=== PATIENT | female | born 1945 | race Caucasian/White ===

== ENCOUNTER 2019-03-28 07:42 | Inpatient (IN) | payer MEDICARE, OTHER, SELFPAY ==
[2019-03-17 14:00] VITALS: BMI 43.6
[2019-03-28] VITALS (17 sets, daily range): BP systolic 95–121; BP diastolic 42–66; PULSE 65–76; RESP 10–16; TEMP 35.7–36.5; O2SAT 91–99; BMI 43.6
--- NOTE | 2019-03-28 | PATH_ITS ---
[facility] Accession Number: [id number] . 01 Material submitted: . hip - RIGHT HIP . 01 Clinical history: . LIPOMA . 01 Diagnosis: Right Hip, Excision: Lipoma. MRV 03/30/2019 1229 Local . 01 Electronically signed: . Yola Lombardo MD, Dermatopathologist NPI- [id number] . 01 Gross description: . Specimen is received in a formalin-filled container, labeled right hip lipoma, and consists of a 243.0 gram, 13.5 x 13.4 x 7.0 cm, sterling-yellow, unoriented, fibrofatty soft tissue without any grossly identifiable skin present. The specimen is inked blue and sectioning reveals yellow, fatty, grossly unremarkable cut surfaces without a mass or lesion grossly identified. Bulldozer Operator sections are submitted within A1-4. ([id number]) /MRV 03/29/2019 1609 Local . 01 Pathologist provided ICD-10: D17.9 . 01 CPT . 021836 Performed at: [address] [facility] [address], [place], [place] [id number] MD Stepan Coughlin MD Phone: [phone]
--- NOTE | 2019-03-28 06:00 | DI.RAD.S_ITS ---
PROCEDURE: XR PELVIS 1-2V INDICATIONS: postop right toatl hip TECHNIQUE: Intra-operative view of the pelvis and hip acquired. COMPARISON: [facility], MR, MR HIP RIGHT WITHOUT CONTRAST, 03/04/2019, 9:33. [facility], CR, XR PELVIS WITH BILATERAL LATERAL HIPS, 02/23/2019, 13:47. FINDINGS: Bones: Intraoperative devices prior to placement of arthroplasty prostheses are in expected positions. No fractures or suspicious bony lesions. Soft tissues: Overlying surgical retractors are present, along with other intraoperative changes. There is a soft tissue air seen overlying the right hip region. No unexpected radiopaque foreign bodies are identified. IMPRESSION: Expected postoperative changes related to right hip arthroplasty. Dictated by: Balwinder Sousa M.D. on 03/28/2019 at 12:30 Approved by: Balwinder Sousa M.D. on 03/28/2019 at 12:30
[2019-03-28] MEDS: ACETAMINOPHEN 325 MG TABLET 975 MG PO (08:16)
[2019-03-28] MEDS: CELECOXIB 200 MG CAPSULE PO (08:16)
--- NOTE | 2019-03-28 09:19 | PM.PREOP ---
Pre-operative Note Interval Note History & Physical reviewed/Exam performed by Physician: Yes Changes to H&P: No
[2019-03-28] MEDS: CEFAZOLIN 2 GM/100 ML FROZ.PIGGY IV ×2 (09:46→17:32)
[2019-03-28] MEDS: TRANEXAMIC ACID 1,000 MG VIAL 1000 MG IV (10:10)
--- NOTE | 2019-03-28 10:22 | SUR.OPER ---
Lateral on padded OR bed. Gel axillary roll. Arms secured on padded armboard with pillow supporting top arm. Padded hip positioner braces x4 - anterior and posterior chest and pelvis. Additional gel pad used anterior pelvis. Gel pad under bottom leg from knee to foot and secured with tape over sheet.
[2019-03-28] MEDS: MORPHINE 4 MG/ML INJ INJ (10:27)
[2019-03-28] MEDS: ROPIVACAINE 0.5% PF 5 MG/ML 20ML VIAL 60 ML INJ (10:27)
[2019-03-28] MEDS: KETOROLAC 30 MG/ML VIAL IV (10:27)
[2019-03-28] MEDS: LACTATED RINGERS 1,000 ML 42 ML IV ×2 (10:45→11:20)
--- NOTE | 2019-03-28 11:43 | P.OP_ITS ---
Operative Date/Time/Diagnoses Date of procedure: 03/28/19 Time of procedure: 11:43 Pre-op diagnosis: 1. Right hip degenerative joint disease 2. Right hip lipoma Post-op diagnosis: same Procedure & Clinicians Procedure: 1. Right total hip arthroplasty (CPT code 76687 with compounding assistant) 2. Right hip excision of lipoma, 12 x 8 cm. (CPT code 93309 with compounding assistant) Same procedure as scheduled: Yes Indications: Patient is an 73-year-old female with severe right hip DJD. Status post previous left total hip arthroplasty with excellent results. The patient has pain with activities and at rest, limited ambulation and activity tolerance, difficulties with ADLs, and failure of conservative treatment. We have discussed the nature of condition, treatment options, risks and benefits, and patient elects to proceed with total hip arthroplasty and gives informed consent. In addition the patient has a large subcutaneous mass which is nontender over the right greater trochanteric region and as this is in the region of the total hip arthroplasty incision we have discussed the option of excision of the mass and informed consent is obtained. Surgeon: Ashok Lopez Clearing House Clerk: Flaquito Storey Anesthesia Type: General and Spinal Operative Notes Findings: 8 x 12 cm subcutaneous fatty mass consistent with lipoma. Closure Type: primary Specimen(s): other (Fibrofatty mass excised from subcutaneous tissue, lipoma) Prosthetic devices, grafts, tissues, transplants, or devices: Acetabulum: Longoria and Nephew R3 acetabular component size 50 mm Femoral component: Longoria and Nephew Anthology stem size 6 with standard offset Femoral head: 32 mm + 0 cobalt chrome Estimated Blood Loss (mL): 150 Blood products transfused: none Procedure in detail: After satisfaction induction of anesthetic, and administration of IV antibiotics, the patient was positioned in the lateral decubitus position with all bony prominences well padded and pelvic position secured using a hip first coat sander positioning device. Right hip and lower extremity prepped and draped in the usual sterile fashion, 1st dose of intravenous tranexamic acid was administered, then a longitudinal incision was created centered over the greater trochanter and carried sharply through the skin and subcutaneous tissues down to the fascia mann which was divided longitudinally and retracted with a Charnley retractor. External rotators visualize, cut, tagged, and retracted posteriorly, then the capsule was cut in a T-type fashion with the corners tagged and retracted. Hip was dislocated and femoral neck cut made according to preoperative templating. Acetabular retractors then placed, and the acetabular labrum and osteophytes were excised. The acetabulum was then sequentially reamed to 49 mm with an excellent circumferential ream and fit with the trial. The trial component was removed and a permanent size 50 mm Longoria and Nephew R3 acetabular component was selected, positioned, and impacted with satisfactory position and fixation achieved. Permanent liner was then inserted with the elevated lip directed posteriorly. Soft tissue then removed off the lateral femoral neck in the lateral neck was entered using a box osteotome. T- handled reamers placed down the canal followed by sequential broaching to 6 with the final broach left in place for trial reduction which demonstrated excellent leg length, range of motion, and stability characteristics with a 32 mm +0 trial ball. The trial and broach were removed, and a permanent size 6 Longoria and Nephew Anthology stem was selected and inserted with excellent position and fixation achieved. Another trial reduction yielded the above characteristics so the trial ball was exchanged for a permanent 32 mm +0 cobalt chrome ball. The hip was irrigated and reduced and excellent leg length range of motion and stability characteristics were achieved and maintained. Periarticular tissues were infiltrated with combination of ropivacaine, morphine, and Toradol. The hip was copiously irrigated, and the capsule repaired with #2 Ethibond, and the piriformis was repaired back to the greater trochanter with the same. Fascia mann closed with interrupted #1 Ethibond sutures. The large lipoma thus subcuta neous mass which had been retracted anteriorly during the hip arthroplasty was assessed with moderately discrete margins. The lipomas mass was excised with digital dissection and electrocautery. Specimen sent for microscopic evaluation. The subcutaneous tissues were closed in 2 layers of 0 Vicryl and 2 0 Vicryl. Skin was closed with vahid and sterile dressings applied. Second dose of tranexamic acid was administered intravenously, and the anesthetic was terminated. Complications: none Post-operative Condition: stable Disposition: PACU Plan for aftercare: Patient will be admitted to the acute care [facility], and anticipate discharge on postop day 1 with follow-up in office in 10-14 days. Outpatient physical therapy will be arranged and patient will continue to observe posterior hip precautions. Patient will continue use of postoperative Lovenox for 10 days postop.
[2019-03-28] MEDS: LACTATED RINGERS 1,000 ML 125 ML IV ×2 (12:55→21:49)
--- NOTE | 2019-03-28 13:00 | SUR.PHASEI ---
Pt transferred to room 218 via bed with all belongings. Last vital signs stable with no c/o pain; see flowsheet documentation for details. Report given to ABHIJIT Hutton prior to transfer. ABHIJIT Hutton and ABHIJIT Thompson at bedside upon arrival to room 218; handoff report and assessment completed with ABHIJIT Thompson. Donna to assume care of pt at this time.
--- NOTE | 2019-03-28 13:21 | PC.NURSE ---
Addendum entered by Donna Steen R.N. 03/28/19 15:27: Late entry: (1420)- Resting quietly in bed with eyes closed. Respirations regular and unlabored, SpO2 99% on 1L. No s/sx pain or discomfort. 0 on FLACC scale. Light in reach, bed alarm on. Addendum entered by Donna Steen R.N. 03/28/19 13:58: Vitals stable. Tolerating PO's without N/V, general diet ordered for dinner. C/O 3/10 pain in R hip, medicated with 1 tab Vicodin for the same. Denies other needs at this time. Call light in reach, bed alarm on. Original Note: Post-op: Arrived to room 218 at 1255. Wide awake and alert, oriented X3. NICOLE dressing to R hip C/D/I, battery pack WNL. Denies numbness/tingling to BLE's, denies pain. CMS+, strong pedal pulses, feet warm/pink, cap refill <2 sec. VSS, a bit hypotensive (systolic in the 90's) but asymptomatic at rest. BP was in this range in PACU (per CUSTOMER ORDER CLERK). IVF per orders, site in R hand WNL. SCD's to BLE's, pillow between legs. Denies N/V, given coffee and water. Lungs CTA, on 1L O2. Oriented to room and call light, encouraged to make needs known. Call light within reach, bed alarm on.
[2019-03-28] MEDS: HYDROCODONE/ACET 5/325 TABLET 1 TAB PO (13:40)
--- NOTE | 2019-03-28 16:00 | PT.IIE ---
Current Diagnoses Other specific arthropathies, not elsewhere classified, other specified site (03/28/19) Unilateral primary osteoarthritis, right hip (03/28/19) Surgery Performed Operation Date: 03/28/19 09:45 Actual Procedures p Total Hip Arthroplasty(Right) - Ashok Lopez MD Surgical History (Last Updated 03/17/19 @ 14:18 by Elena Sam RN) History of carpal tunnel surgery of right wrist (Acute) History of total left hip arthroplasty (Acute) Hx of cholecystectomy (Acute) Hx of hernia repair (Acute) Hx of laminectomy (Acute 08/28/15) Hx of oral surgery (Acute) Hx of tubal ligation (Acute) Status post epidural steroid injection (Acute) Medical History (Last Updated 03/17/19 @ 14:22 by Elena Sam RN) Ankle fracture, left (Acute ~2008) Easy bruisability (Acute) Factor V Leiden (Acute) Phlebitis (Acute) Psoriasis (Acute) Rectal bleeding (Acute ~2015) Physical Therapy Inpatient Evaluation/Re-Eval M1 PT/OT-IP Prior Functional Status Start: 03/28/19 17:23 Freq: NEEDED Status: Active Protocol: Document 03/28/19 16:00 DLM (Rec: 03/28/19 17:40 DLM [id number]) Medical Review Prior Functional Status Medical History Reviewed Yes Diet/Fluid Consistency Regular Communication WNL Mobility and Gait Independent, uses cane to manage her hip pain, can ambulate community distances but hip pain was limiting her distances Activities of Daily Living and IADL's Independent Social History Household Members family Living Arrangements House Number of Floors (Floors) Two Floors Number of Stairs To Enter/Railing? 4 with one rail or a ramp Home Equipment Front Wheel Walker,Straight Cane,Bedside Commode,Shower Seat with Backrest,Hospital Bed Employment Status Retired Additional Social History Comment transfer pole She has a sucken living room with 2 steps down and a pole at the steps She lives with family members who are available to help 15/12 and she has more family coming to help her after surgery. M2 PT-IP Current Condition Start: 03/28/19 17:23 Freq: NEEDED Status: Active Protocol: Document 03/28/19 16:00 DLM (Rec: 03/28/19 17:40 DLM [id number]) Physical Therapy Current Condition Current Condition Evaluation Date 03/28/19 Treatment Diagnosis right EVA, impaired gait Onset Date 03/28/19 Precautions Posterior Hip Precautions No Hip Flexion > 90 degrees,No Hip Internal Rotation,No Hip Adduction Weight Bearing Status Weight Bearing Status Weight Bear as Tolerated M3 PT-IP Subjective Start: 03/28/19 17:23 Freq: NEEDED Status: Active Protocol: Document 03/28/19 16:00 DLM (Rec: 03/28/19 17:40 DLM [id number]) Subjective Physical Therapy Visit Type Type Initial Evaluation Visit Start Time 15:30 Visit Stop Time 16:00 Total Visit Minutes 30 Number of ENVIRONMENTAL PROJECT MANAGER Visits 0 Physical Therapy Visit Comments Patient Comments She reports she feels well Patient Goals discharge home with help from family Therapy Pain Assessment Pain When Pain Assessed During Mobility Pain Present Pain Present Denied Pain M4 PT-IP Mobility and Gait Start: 03/28/19 17:23 Freq: NEEDED Status: Active Protocol: Document 03/28/19 16:00 DLM (Rec: 03/28/19 17:40 DLM [id number]) PT-Bed Mobility Assessment Supine to Sit Supine to Sit Contact Guard Assistance, Minimal Assistance Scooting Scooting to Edge of Bed Standby Assistance PT-Transfer Assessment Sit to and From Stand Sit to and from Stand Contact Guard Assistance,Use of Upper Extremities Equipment Transfer Assistive Device Gait Belt,Front Wheeled Walker Transfers Transfer Destination Chair Transfer Technique Stand Step Pivot Transfer Ability Level of Assist Contact Guard Assistance,Use of Upper Extremities Comments Mobility Comments Pt up to recliner with family member visiting. Vitals with initial sitting 120/65 and HR 76. Repeated vitals with pt in recliner BP 113/58 and HR 69. No light-headedness and no nausea at this time. O2 sats 93-94% on room air. Pt instructed to have staff assist for all mobility at this time. She needs cuing to manage her hip precautions during bed mobility. Gait Assessment Gait Gait Assistance Required: Contact Guard Assist Distance (Feet) 2 Able to Maintain Weight Bearing Status Yes During Gait Assistive Devices Assistive Device Gait Belt,Front Wheeled Walker Gait Deviations General Gait Pattern Antalgic Factors Limiting Gait Function Factors Limiting Gait Function Decreased Activity Tolerance, Decreased Sensation,Decreased Strength Comments Gait Comments pt reports numbness in right foot that got worse when sitting edge of bed and in standing. She reports this numbness is new since surgery. PT-Balance Assessment Sitting Balance and Reactions Static Sitting Balance Ability Normal Dynamic Sitting Balance Ability Good Standing Balance and Reactions Static Standing Balance Ability Good Dynamic Standing Balance Ability Fair Device Used FWW M5 PT-IP Objective Assessments Start: 03/28/19 17:23 Freq: NEEDED Status: Active Protocol: Document 03/28/19 16:00 DLM (Rec: 03/28/19 17:40 DLM [id number]) Orientation Orientation/Cognition Level of Alertness Alert Orientation Name,Age,Birthday,Month,Date, Year,Day of Week,Place, Situation Language Function Ability No Deficits Noted Safety Awareness Understands Safety Issues Memory Description No Deficits Noted Comments educated in hip precautions Gross Range of Motion Upper Extremity ROM Assessment Within Functional Limits Lower Extremity ROM Assessment Right Impaired Impairments post-op restrictions s/p EVA Strength Upper Extremity Strength Assessment Within Functional Limits Lower Extremity Strength Assessment Right Impaired Hip post-op weakness but moving functionally Knee 4+/5 Ankle DF 2+/5 Comments Strength Comments pt reports her right ankle weakness is new since surgery Coordination Assessment Gross Coordination Gross Coordination WNL Sensation Assessment Sensation Gross Sensation Right LE Impaired Light Touch Intact Sensation Description Numbness Comments Sensation Comments she reports numbness right foot which is worse in toes Muscle Tone Muscle Tone WNL Yes M6 PT-IP Treatment Start: 03/28/19 17:23 Freq: NEEDED Status: Active Protocol: Document 03/28/19 16:00 DLM (Rec: 03/28/19 17:40 DLM [id number]) Physical Therapy Treatment Exercises Exercises Ankle Pumps Education Education Provided Precautions,Weight Bearing Status,Post-Op Packet,Safety Equipment Issued Equipment Type and Company she reports her walker for home is in the car M7 PT-IP Assessment and Plan Start: 03/28/19 17:23 Freq: NEEDED Status: Active Protocol: Document 03/28/19 16:00 DLM (Rec: 03/28/19 17:40 DLM [id number]) PT Summary Assessment and Plan Potential Rehabilitation Potential Excellent Status of Condition at Evaluation Evolving Summary Impairments Pain,ROM,Strength,Balance,Bed Mobility,Transfers,Gait, Activity Tolerance Assessment Summary Lakisha is alert and willing to work with physical therapy. She tolerated standing at edge of bed and getting up to recliner this visit. Noted right Dorsiflexion weakness that pt reports is new since surgery. She also has numbness in right foot/toes today. She tolerated mobility well but did not feel ready to progress to gait. Pt left up in recliner with nursing aware. Anticipate she will be able to discharge home with family assist when medically cleared. She reports having a very supportive family that live with her. Goals Bed Mobility Goal Independent Transfer Goal Independent Gait Goal Independent,Front Wheel Walker Gait Distance 100 feet Other Goals up and down 2 steps with rail and cane with SBA pt will demonstrate hip precautions during mobility Days to Meet Goals 3 Frequency of Treatment Frequency Of Treatment Twice a Day Treatment Plan Physical Therapy Treatment Plan Bed Mobility Training,Transfer Training,Gait Training, Therapeutic Exercise,Balance Retraining,Post Op Education, Discharge Planning,Hot or Cold Pack,Neuromuscular Re-ed Other Recommendations and Next Treatment monitor right ankle weakness Focus post-op Recommendations To Nursing Amount of Assist Needed 1 Person Assist Discharge Recommendations PT Discharge Recommendations Home with Assistance, Outpatient PT Other Discharge Recommendations pt has out-pt PT set up to start in about a week
[2019-03-28] MEDS: ENOXAPARIN 40 MG/0.4 ML SYRINGE SUBCUT (17:32)
[2019-03-28] MEDS: WARFARIN 5 MG TABLET 10 MG PO (17:32)
[2019-03-29] MEDS: CEFAZOLIN 2 GM/100 ML FROZ.PIGGY IV (01:48)
[2019-03-29] MEDS: HYDROCODONE/ACET 5/325 TABLET 1 TAB PO ×3 (02:19→10:36)
[2019-03-29 05:52] LABS: Hematocrit 33.3 % (36-46); Hemoglobin 11.3 g/dL (12.0-16.0)
[2019-03-29 06:01] VITALS: BP 101/51; PULSE 73; RESP 16; TEMP 36.6; O2SAT 98
--- NOTE | 2019-03-29 08:01 | PC.NURSE ---
Addendum entered by Lay Brewer R.N. 03/29/19 10:54: Pt able to properly demonstrate administration of lovenox injections to herself. Discharge summary packet reviewed with pt and her daughter at bedside. No voiced concerns, states has lovenox injections already at home for next 4 days, has appointment to see her Protime specialist on April 01. No further voiced concerns, has all belongings. Pt left unit in no distress at 1053 via wheelchair with CAUSTIC CRESYLATE SHIFT SUPERINTENDENT escort ad her daughter is present to drive her home. Original Note: Day SHift- Pt A&OX4, able to make needs known using call light, bed alarm on. OOB with SBA, pt using FWW and gait belt. Pt able to get herself to edge of bed, able to lift her RLE slightly off bed for movement and lift her leg from a dangle position onto bed. Right posterior NICOLE dressing CDI with pinpoint drainage to distal end of dressing, Battery pack green light flashing. Pt states she has been taking 110mg BID of lovenox at home prior to surgery and is due to take 15mg warfarin starting today per her Protime specialist who works with her Dr. Pt has been giving her own Lovenox injections at home and is comfortable in doing this. KADEN Thompson aware of lovenox dosing and to clarify post op dose. Pt also states she has stool softeners at home. Wants to go home today after cleared by PT, her daughter will pick her up.
[2019-03-29 08:30] VITALS: BP 130/66; PULSE 80; RESP 16; TEMP 36.7; O2SAT 100
--- NOTE | 2019-03-29 08:51 | CM.DANOTE ---
DCP; Case received, EMR reviewed and met with patient. Introduced self and role. Was able to meet with patient in her room to obtain baseline health and activity information. DCP assessment/template completed with information currently available. Patient is a 73 year old female who admitted yesterday morning to the care of the orthopedic team. PCP: Dr. Dean at [facility]. Payer: confirmed: Medicare/[facility]. Patient came to the hospital for a surgical procedure. She had right total hip surgery. Patient has history of right hip osteoarthritis, and degenerative joint disease. Patient had been having increased pain with motion limitations. Met with patient in her room. Pleasant demeanor, she was alert and sitting up in her chair next to her bed. Patient mentioned that she had her left hip surgery back in 2017. Confirmed with patient that she uses a cane, but also has a walker at home. She is independent, but does have a son that also lives near her in [place], as well as a daughter, Eva, for home support. She already has outpatient P.T. set up. She will be working with P.T. today. Patient is a . P: DCP to continue to follow for any needs. She will be working with the physical therapy team today. Beulah Caceres RN/Dispenser Operator
--- NOTE | 2019-03-29 09:36 | PT.IPTN ---
Current Diagnoses Other specific arthropathies, not elsewhere classified, other specified site (03/28/19) Unilateral primary osteoarthritis, right hip (03/28/19) Surgery Performed Operation Date: 03/28/19 09:45 Actual Procedures p Total Hip Arthroplasty(Right) - Ashok Lopez MD Physical Therapy Treatment Note M2 PT-IP Current Condition Start: 03/28/19 17:23 Freq: NEEDED Status: Active Protocol: Document 03/28/19 16:00 DLM (Rec: 03/28/19 17:40 DLM [id number]) Physical Therapy Current Condition Current Condition Evaluation Date 03/28/19 Treatment Diagnosis right EVA, impaired gait Onset Date 03/28/19 Precautions Posterior Hip Precautions No Hip Flexion > 90 degrees,No Hip Internal Rotation,No Hip Adduction Weight Bearing Status Weight Bearing Status Weight Bear as Tolerated M3 PT-IP Subjective Start: 03/28/19 17:23 Freq: NEEDED Status: Active Protocol: Document 03/29/19 09:02 CLB (Rec: 03/29/19 09:56 CLB [id number]) Subjective Physical Therapy Visit Type Type Treatment Note Visit Start Time 09:02 Visit Stop Time 09:36 Total Visit Minutes 34 Number of CANOE MAKER Visits 1 Physical Therapy Visit Comments Patient Comments Pt states all her numbness in her foot is gone. Pt stated family will not be able to be at hospital for training but her daughter helped her with her last hip replacement. Patient Goals discharge home today with family assist. Therapy Pain Assessment Pain When Pain Assessed During Mobility Pain Present Pain Present Pain Reported Location Right Hip Intensity 2 Scale Used Numeric (1 - 10) M4 PT-IP Mobility and Gait Start: 03/28/19 17:23 Freq: NEEDED Status: Active Protocol: Document 03/29/19 09:02 CLB (Rec: 03/29/19 09:56 CLB [id number]) PT-Bed Mobility Assessment Sit to Supine Sit to Supine Standby Assistance Scooting Scooting to Edge of Bed Standby Assistance PT-Transfer Assessment Sit to and From Stand Sit to and from Stand Standby Assistance,Use of Upper Extremities Equipment Transfer Assistive Device Gait Belt,Front Wheeled Walker Transfers Transfer Destination Bed,Toilet Transfer Technique Stand Step Pivot Transfer Ability Level of Assist Standby Assistance,Use of Upper Extremities Comments Mobility Comments Pt in recliner upon arrival, Pt able to stand SBA and ambulate into bathroom, pt required SBA for sit<>stand and able to perform her own pericare. Pt then walked to sink SBA and was able to stand at counter and brush her hair . Pt is steady during transfers and standing at sink . Pt was able to go from sitting on EOB to supine with SBA and flat bed. Left pt in bed with alarm on, call light within reach and SCD's on bilateral legs. Gait Assessment Gait Gait Assistance Required: Standby Assistance Distance (Feet) 300 Able to Maintain Weight Bearing Status Yes During Gait Assistive Devices Assistive Device Gait Belt,Front Wheeled Walker Gait Deviations General Gait Pattern Antalgic Factors Limiting Gait Function Factors Limiting Gait Function Decreased Activity Tolerance, Decreased Strength Comments Gait Comments Pt reports pain 2/10 during ambulation. Pt able to ambulate ~300ft to stairs and back with SBA, good safety awareness and pt was steady. Pt denies numbness in right foot stating all her feeling has come back and it no longer tingles. Pt was able to walk with step through gait pattern . Stair Climbing Assessment Evaluation Level of Assist On Stairs Contact Guard Assistance Devices Stair Climbing Assistive Devices Right Railing Technique/Endurance Stair Climbing Direction Ascend and Descend Stair Climbing Technique Step to Step Number of Steps Climbed 3 Stair Climbing Set # Repetitions (reps) 2 Comments Stair Climbing Comments Pt recalled proper sequencing while climbing stairs and stated that is how she was doing it before surgery. M5 PT-IP Objective Assessments Start: 03/28/19 17:23 Freq: NEEDED Status: Active Protocol: Document 03/28/19 16:00 DLM (Rec: 03/28/19 17:40 DLM [id number]) Orientation Orientation/Cognition Level of Alertness Alert Orientation Name,Age,Birthday,Month,Date, Year,Day of Week,Place, Situation Language Function Ability No Deficits Noted Safety Awareness Understands Safety Issues Memory Description No Deficits Noted Comments educated in hip precautions Gross Range of Motion Upper Extremity ROM Assessment Within Functional Limits Lower Extremity ROM Assessment Right Impaired Impairments post-op restrictions s/p EVA Strength Upper Extremity Strength Assessment Within Functional Limits Lower Extremity Strength Assessment Right Impaired Hip post-op weakness but moving functionally Knee 4+/5 Ankle DF 2+/5 Comments Strength Comments pt reports her right ankle weakness is new since surgery Coordination Assessment Gross Coordination Gross Coordination WNL Sensation Assessment Sensation Gross Sensation Right LE Impaired Light Touch Intact Sensation Description Numbness Comments Sensation Comments she reports numbness right foot which is worse in toes Muscle Tone Muscle Tone WNL Yes M6 PT-IP Treatment Start: 03/28/19 17:23 Freq: NEEDED Status: Active Protocol: Document 03/29/19 09:02 CLB (Rec: 03/29/19 09:56 CLB [id number]) Physical Therapy Treatment Exercises Exercises Ankle Pumps,Gluteal Sets,Quad Sets,Heel Slides,Supine Hip Abduction Education Education Provided Precautions,Weight Bearing Status,Post-Op Packet,Safety Other Treatments Other Treatment Performed Pt recalled 3/3 post hip precautions with good demonstration during tx. M7 PT-IP Assessment and Plan Start: 03/28/19 17:23 Freq: NEEDED Status: Active Protocol: Document 03/29/19 09:02 CLB (Rec: 03/29/19 09:56 CLB [id number]) PT Summary Assessment and Plan Potential Status of Condition at Evaluation Evolving Summary Impairments Pain,ROM,Strength,Balance,Bed Mobility,Transfers,Gait, Activity Tolerance Assessment Summary Pt is SBA for all mobility except required CGA during stair training. Pt ambulate ~ 300ft w/FWW/SBA with pain 2/10 . Pt is able to demonstrate hip precautions during mobility. Pt has / assist at home and daughter will pick her up to take her home at d/ c. Pt seems able to d/c home with assist when medically stable. Goals Bed Mobility Goal Independent Transfer Goal Independent Gait Goal Independent,Front Wheel Walker Gait Distance 100 feet Other Goals up and down 2 steps with rail and cane with SBA pt will demonstrate hip precautions during mobility Days to Meet Goals 3 Frequency of Treatment Frequency Of Treatment Twice a Day Recommendations To Nursing Amount of Assist Needed 1 Person Assist Discharge Recommendations PT Discharge Recommendations Home with Assistance, Outpatient PT Other Discharge Recommendations pt has out-pt PT set up to start in about a week
[2019-03-29] MEDS: ENOXAPARIN 60 MG/0.6 ML SYRINGE 110 MG SUBCUT (09:49)
--- NOTE | 2019-03-29 10:18 | PM.DS.1 ---
History of Present Illness History of Present Illness Date Patient Seen: 03/29/19 Chief complaint: [id number] Narrative: Please see HPI previously recorded in the chart. Discharge Providers Provider Date of admission: 03/28/19 07:42 Discharge Date: 03/29/19 Primary care physician: Flavia Dean MD Consults: 03/28/19 13:06 Consult to Discharge Planning Routine Comment: Consult to Physical Therapy Evaluate & Treat Comment: Physician Instructions: post op EVA protocol Consult to Respiratory Therapy Evaluate & Treat Comment: Physician Instructions: Evaluate and treat Discharge provider: Ladi Serna PA-C Summary Hospital Course Discharge Diagnosis: s/p right EVA Hospital Course: Patient is an 73-year-old female with severe right hip DJD. Status post previous left total hip arthroplasty with excellent results. The patient has pain with activities and at rest, limited ambulation and activity tolerance, difficulties with ADLs, and failure of conservative treatment. We have discussed the nature of condition, treatment options, risks and benefits, and patient elects to proceed with total hip arthroplasty and gives informed consent. In addition the patient has a large subcutaneous mass which is nontender over the right greater trochanteric region and as this is in the region of the total hip arthroplasty incision we have discussed the option of excision of the mass and informed consent is obtained. After informed consent was obtained the patient was taken to the operating room and underwent a right total hip arthroplasty with Dr. Lopez which she tolerated well without complications. Afterwards she was taken to the [facility] where she has been progressing well post operatively. She has been mobilizing about the room well and has worked with physical therapy. Her pain has been well controlled. She denies any chest pain, shortness of breath, fevers or calf tenderness. She has been voiding appropriately and tolerated a diet. She takes Lovenox as part of her usual medication regimen at 110mg daily along with Warfarin. She will be maintained on this post operatively as DVT prophylaxis. She has supply of this at home and is scheduled to follow up at her Warfarin clinic on Thursday. She is being discharged with supply of Oxycodone. She is medically stable for discharge later today. Status at Discharge Cognitive/behavioral status at discharge: oriented Functional status at discharge: uses cane/walker Overall status at discharge: patient is progressing back to baseline Exam Vital Signs (past 8 hours): - 03/29/19 06:01 03/29/19 08:30 Temperature 97.8 F 98.1 F Pulse Rate 73 80 Respiratory Rate 16 16 Blood Pressure 101/51 L 130/66 Pulse Oximetry 98 100 Oxygen Delivery Method Room Air Oxygen Flow Rate 0 Narrative Exam Narrative: 73 year old female resting comfortably in bed. Alert and oriented in no acute distress. Bulky dressing in place over right hip is CDI. Patient able to flex/extend the toes. Calves soft, compressible. Palpable pedal pulse. Objective Labs Result Diagrams: 03/29/19 05:33 Labs: Laboratory Results - last 24 hr 03/29/19 05:33 Hgb 11.3 L Hct 33.3 L Discharge Plan Discharge Plan Patient Disposition: Home Discharge comment: home if cleared by PT Discharge Med Rec/Prescriptions Prescriptions: New hydroxyzine pamoate 25 mg Capsule 25 mg PO Q6HR PRN (Reason: Spasms) Qty: 40 RF: 0 oxycodone 5 mg capsule 5 mg PO Q4-6H PRN (Reason: pain) Qty: 40 RF: 0 Continued gabapentin [Neurontin] 300 MG capsule 300 mg PO BID Qty: 0 RF: 0 warfarin 10 mg Tablet 10 mg PO DAILY RF: 0 aspirin [Aspir-81] 81 mg Tablet,Delayed Release (Dr/Ec) 81 mg PO DAILY RF: 0 tramadol 50 mg Tablet 50 mg PO BID RF: 0 trospium 20 mg Tablet 20 mg PO BID RF: 0 Cosentyx Pen 150 mg/mL Pen Injector 300 mg SUBCUT Q4W RF: 0 acetaminophen 325 MG tablet 325 mg PO Q4HP PRN (Reason: Pain) RF: 0 enoxaparin [Lovenox] 100 MG/1 ML syringe 110 mg SQ BID RF: 0 cholecalciferol (vitamin D3) [Vitamin D3] 1,000 unit Capsule 1,000 unit PO DAILY RF: 0 omega 3-zqf-lsk-fish oil [Fish Oil] 1,000 mg (120 mg-180 mg) Capsule 1 cap PO DAILY RF: 0 Follow up/Referrals: Ashok Lopez MD [Physician] - 04/05/19 1:30 pm (Follow [facility] booklet for follow up appointments.) Provider Discharge Instructions Diet: Diet as Tolerated Activity: Weight bear as tolerated. Posterior hip precautions. Cold/Heat Therapy: Ice packs as needed. Skin/Wound/Dressing Care Report to your healthcare provider any signs of infection, such as:: chills, fever, night sweats, unusual drainage and unusual redness Dressing: Please leave dressing in place. This will be removed at your post op visit. If dressing becomes saturated please call the office. Visit Report/Discharge Packet Instructions: DI for Hip Replacement, How to Prevent Falls, DI for Postoperative Pain, Enoxaparin Injection, Oxycodone Discharge Data Primary Care Provider: Flavia Dean VTE Deep Vein Thrombosis/Pulmonary Embolism Present on Admission: No
== END 2019-03-29 10:53 | disposition home or self-care (01) | DRG 464 ==
PROVIDERS: Admitting Provider Orthopaedic Surgery; Family Provider Family Medicine; PCP Family Medicine; Visit Provider Orthopaedic Surgery
PROC: 0SR90JZ Replacement of Right Hip Joint with Synthetic Substitute, Open Approach (ICD-10-PCS; CPT 27130; principal; 2019-03-28 09:45)
DX: M16.11 Unilateral primary osteoarthritis, right hip (principal); D68.51 Activated protein C resistance; Z68.41 Body mass index [BMI] 40.0-44.9, adult; E66.9 Obesity, unspecified; Z87.891 Personal history of nicotine dependence; Z79.01 Long term (current) use of anticoagulants; Z96.642 Presence of left artificial hip joint; Z86.718 Personal history of other venous thrombosis and embolism; D17.23 Benign lipomatous neoplasm of skin and subcutaneous tissue of right leg
CPT/HCPCS: 36415; 72170; 73502; 85014; 85018; 94762; 97110; 97116; 97162; C1776; J0690; J1100; J1650; J1885; J2250; J2270; J2274; J2405; J2704; J3010

== ENCOUNTER 2022-09-03 06:19 | Day surgery (SDC) | payer MEDICARE, OTHER, SELFPAY ==
[2019-03-28 13:43] VITALS: BMI 43.6
[2022-08-19 13:33] VITALS: BMI 39.2
[2022-09-03] VITALS (9 sets, daily range): BP systolic 109–151; BP diastolic 45–80; PULSE 66–79; RESP 12–20; TEMP 36.1–37.1; O2SAT 96–99; BMI 39.2
--- NOTE | 2022-09-03 06:00 | DI.RAD.S_ITS ---
PROCEDURE: XR KNEE LT 1TO2V INDICATIONS: TKA TECHNIQUE: 2 view(s) of the knee acquired. COMPARISON: None. FINDINGS: Bones: Patient is status post knee joint arthroplasty. Hardware components are in expected positions. Visualized bony structures are intact. Soft tissues: Overlying postoperative changes are noted. IMPRESSION: Total left knee arthroplasty in good position Approved by: Dawood Irvin M.D. on 09/03/2022 at 9:40
[2022-09-03] MEDS: ACETAMINOPHEN 325 MG TABLET 975 MG PO (07:02)
[2022-09-03] MEDS: LACTATED RINGERS 1,000 ML 42 ML IV (07:02)
[2022-09-03] MEDS: CELECOXIB 200 MG CAPSULE PO (07:02)
--- NOTE | 2022-09-03 07:21 | PM.PREOP ---
Pre-operative Note COVID-19 COVID-19 status: Result pending Result date/Date tested (Pos, Neg/Pending): 09/03/22 Interval Note History & Physical reviewed/Exam performed by Physician: Yes Changes to H&P: No
[2022-09-03 07:24] LABS: COVID19 -Nasal RAPID Negative (Negative)
[2022-09-03] MEDS: CEFAZOLIN 2 GM/100 ML PREMIX 100 ML IV ×2 (07:52→16:06)
[2022-09-03] MEDS: TRANEXAMIC ACID 1,000 MG VIAL 2000 MG INJ (08:10)
--- NOTE | 2022-09-03 08:16 | SUR.OPER ---
Supine on padded OR bed. Pillow under head, arms secured on padded armboards <90 degree abduction. Safety belt across torso. Non-operative leg secured with tape over blanket over lower leg. Operative leg secured in DeMayo/Kevin/Nathe positioner. Foam padded brace at thigh of operative leg.
[2022-09-03] MEDS: BUPIVACAINE LIPOSOME 266 MG/20 ML VIAL INJ (08:32)
[2022-09-03] MEDS: BUPIVACAINE 0.25% (PF) 60 ML, EPINEPHrine 0.3 MG INJ (08:32)
[2022-09-03] MEDS: MORPHINE 4 MG/ML INJ SUBCUT (08:35)
--- NOTE | 2022-09-03 09:42 | P.OP_ITS ---
Operative Date/Time/Diagnoses Date of procedure: 09/03/22 Time of procedure: 09:42 Pre-op diagnosis: Left knee osteoarthritis Post-op diagnosis: same Procedure & Clinicians Procedure: Left total knee replacement Same procedure as scheduled: Yes Indications: The patient has had progressively worsening left knee pain with radiographic changes consistent with arthritis. Non-operative management has failed and the patient has requested total knee replacement. The risks, benefits and alternatives to surgery were discussed with the patient prior to proceeding. Risks discussed included, but were not limited to, failure to relieve pain, stiffness, infection, nerve damage, deep venous thrombosis, pulmonary embolism, stroke, coma, heart attack, permanent paralysis and , as well as the potential need for eventual revision of the prosthetic. Surgeon: Nicolás Ware [employer]el[employer] Sales Representative: [place] Zuluaga Click Yes if Unassisted: No Anesthesia Type: General, Spinal and Local Operative Notes Findings: Severe medial and moderate patellofemoral osteoarthritis with relative preservation of the lateral compartment. Closure Type: primary Specimen(s): none sent Prosthetic devices, grafts, tissues, transplants, or devices: Implants used in this procedure were manufactured by the [employer] [facility] and included the BCS II Journey total knee replacement with a size 4 left cobalt chromium femur, size 4 left non porous tibial base plate, a 9 mm cross-linked polyethylene tibial insert and a 32 mm oval Lauryn II patellar component. Applied: implant(s) Estimated Blood Loss (mL): 25 Blood products transfused: none Tourniquet time (min): 48 Procedure in detail: The patient was seen in the pre-operative area, where the left knee was identified as the operative site and this was marked with my initials. The patient received pre-operative antibiotics, and was taken to the operating room and placed on the operative table in the supine position. After satisfactory anesthesia, a manager multimedia out was performed. The left leg was encircled with a tourniquet about the proximal thigh, and the leg was prepared from the toes to the tourniquet with ChloroPrep in the usual fashion and draped through sterile drapes. The leg was elevated and exsanguinated with Eschmark bandage and the tourniquet inflated to 250 mmHg pressure. The knee was approached through an approximately 18 cm incision centered over the patella and carried into the knee through a medial parapatellar arthrotomy. The anterior osteophytes and soft tissues were removed. The rotational landmarks of Phelps's line and the transepicondylar axis were marked on the femur with electrocautery, and intramedullary guide holes for the femur and tibia were created. The distal femoral cut was made in 6 degrees of valgus using the intramedullary guide at the primary cut setting. The proximal tibial cut was then made using the intramedullary guide, taking 9 mm of bone off the less involved side. The extension gap was checked and the rotation of the femoral component confirmed with the gap balancing blocks. The anterior, posterior and chamfer cuts were then made. The posterior osteophytes and soft tissues were then removed. The posterior capsule was injected with part of a mixture of 60 ml 0.25% Marcaine mixed with 20 ml Exparel and 4 mg of morphine for post-operative pain control. The remainder of this mixture was injected into the capsule and subcutaneous tissues during cement curing. The tibia was prepared with the rotation set by an extra medullary guide. Trial tibial and femoral components were then placed and the intercondylar notch cut through the femoral trial. Range of motion was 0-135 degrees, with good stability throughout the range. The patella was then cut to accommodate the patellar prosthetic. There was no need for a lateral release. The trials were then removed, and the femoral hole plugged with a bone plug. The bone was prepared with pulsatile lavage, and dried with a sponge. Cement was applied and the final prosthetics placed. Excess cement was removed during and after cement curing. After confirming there was no extruded cement posteriorly, the final tibial insert was placed. The knee was copiously irrigated and the tourniquet deflated. Hemostasis was obtained. The capsule was closed with interrupted # 2 polyester sutures. The subcutaneous layer was closed with 3-0 Vicryl, and the skin with a running 3-0 V-Lock suture and Dermabond. An Aquacel Ag dressing was applied and the patient was taken to recovery having tolerated the procedure well. The services of a skilled surgical elastic knitter were required during this procedure to assist with positioning, exposure and retraction to protect vital structures. Without the services of Ms. Zuluaga, the procedure would not have moved forward in a safe, expedient fashion. Complications: none Post-operative Condition: stable Disposition: PACU Plan for aftercare: The patient will be maintained on a standard total knee replacement protocol with weight bearing as tolerated. The patient will receive aspirin and sequential compression devices for DVT prophylaxis. The patient will be discharged home when safe for the home environment.
[2022-09-03] MEDS: LACTATED RINGERS 1,000 ML 100 ML IV (11:00)
[2022-09-03] MEDS: OXYCODONE IR 5 MG TABLET PO ×2 (11:18→16:05)
[2022-09-03] MEDS: ENOXAPARIN 100 MG/ML SYRINGE SUBCUT (11:19)
[2022-09-03 11:49] LABS: INR 1.1 (0.9-1.3); Prothrombin Time 12.8 SECONDS (10.1-12.7)
--- NOTE | 2022-09-03 12:10 | PT.IIE ---
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) Hx of bilateral cataract extraction Hx of cholecystectomy Hx of hernia repair Hx of laminectomy (08/28/15) Hx of oral surgery Hx of tubal ligation Status post epidural steroid injection Medical History (Last Updated 03/17/19 @ 14:22 by Elena Sam, ABHIJIT) Ankle fracture, left (~2008) Easy bruisability Factor V Leiden Phlebitis Psoriasis Rectal bleeding (~2015) Physical Therapy Inpatient Evaluation/Re-Eval M1 PT/OT-IP Prior Functional Status Start: 09/03/22 10:28 Freq: NEEDED Status: Active Protocol: Document 09/03/22 12:02 [facility] (Rec: 09/03/22 12:10 [facility] [id number]) Medical Review Prior Functional Status Medical History Reviewed Yes Diet/Fluid Consistency Regular Communication WNL Social History Household Members family Living Arrangements House Number of Floors (Floors) One Floor Number of Stairs To Enter/Railing? 4 STEw/rail and 2 platform steps to get to bedroom Home Environment Standard Height Toilet,Tub/ Shower Home Equipment Front Wheel Walker,Straight Cane,Crutches,Tub Transfer Bench,Shower Seat without Backrest,Long Handled Shoe Horn,Big Data Platform Architect,Sock Aid,Hospital Bed,Grab Bars In Shower Employment Status Retired Additional Social History Comment pt lives w/son and DIL and her dgt an FELIPA will stay a few days to help her M2 PT-IP Current Condition Start: 09/03/22 10:28 Freq: NEEDED Status: Active Protocol: Document 09/03/22 12:02 [facility] (Rec: 09/03/22 12:10 [facility] [id number]) Physical Therapy Current Condition Current Condition Evaluation Date 09/03/22 Treatment Diagnosis L TKA Onset Date 09/03/22 M3 PT-IP Subjective Start: 09/03/22 10:28 Freq: NEEDED Status: Active Protocol: Document 09/03/22 12:02 [facility] (Rec: 09/03/22 12:10 [facility] [id number]) Subjective Physical Therapy Visit Type Type Initial Evaluation Visit Start Time 11:30 Visit Stop Time 11:57 Total Visit Minutes 27 Number of GEOGRAPHIC INFORMATION SCIENTIST Visits 0 Physical Therapy Visit Comments Patient Goals To go home today and to be able to go camping in her trailer in 6 weeks Therapy Pain Assessment Pain When Pain Assessed At Rest Pain Present Pain Present Pain Reported Location Left knee Intensity 4 Pain Management Techniques Apply Cold,Re-positioning, Timing of Activity with Medications M4 PT-IP Mobility and Gait Start: 09/03/22 10:28 Freq: NEEDED Status: Active Protocol: Document 09/03/22 12:02 [facility] (Rec: 09/03/22 12:10 [facility] [id number]) PT-Bed Mobility Assessment Supine to Sit Supine to Sit Standby Assistance Scooting Scooting to Edge of Bed Standby Assistance PT-Transfer Assessment Sit to and From Stand Sit to and from Stand Standby Assistance,Use of Upper Extremities Equipment Transfer Assistive Device Gait Belt,Front Wheeled Walker Orthotic/Prosthetic Devices or Brace: No Gait Assessment Gait Gait Assistance Required: Standby Assistance Distance (Feet) 70 Able to Maintain Weight Bearing Status Yes During Gait Assistive Devices Assistive Device Gait Belt Orthotic/Prosthetic Devices or Brace: No Gait Deviations General Gait Pattern Decreased Stride Length, Decreased Feet Clearance Factors Limiting Gait Function Factors Limiting Gait Function Decreased Strength,Limited Range of Motion,Pain Stair Climbing Assessment Comments Stair Climbing Comments n/t PT-Balance Assessment Sitting Balance and Reactions Static Sitting Balance Ability Normal Dynamic Sitting Balance Ability Good Standing Balance and Reactions Static Standing Balance Ability Good Dynamic Standing Balance Ability Fair Device Used FWW M5 PT-IP Objective Assessments Start: 09/03/22 10:28 Freq: NEEDED Status: Active Protocol: Document 09/03/22 12:02 [facility] (Rec: 09/03/22 12:10 [facility] [id number]) Orientation Orientation/Cognition Level of Alertness Alert Language Function Ability No Deficits Noted Safety Awareness Understands Safety Issues Memory Description No Deficits Noted Gross Range of Motion Lower Extremity ROM Assessment Left Impaired Impairments about 80deg flex in seated and 0 deg ext in supine Strength Lower Extremity Strength Assessment Left Impaired Knee grossly 3/5 on L M6 PT-IP Treatment Start: 09/03/22 10:28 Freq: NEEDED Status: Active Protocol: Document 09/03/22 12:02 [facility] (Rec: 09/03/22 12:10 [facility] [id number]) Physical Therapy Treatment Exercises Exercises Ankle Pumps,Quad Sets,Seated Knee Flexion/Extension Education Education Provided Precautions,Weight Bearing Status,Post-Op Packet,Safety M7 PT-IP Assessment and Plan Start: 09/03/22 10:28 Freq: NEEDED Status: Active Protocol: Document 09/03/22 12:02 [facility] (Rec: 09/03/22 12:10 [facility] [id number]) PT Summary Assessment and Plan Potential Rehabilitation Potential Good Status of Condition at Evaluation Evolving Summary Impairments Pain,ROM,Strength,Balance,Bed Mobility,Transfers,Gait, Activity Tolerance Assessment Summary Pt presents day of L TKA w/ good pain control and good mobility. She is very motivated to recover for camping season and she is moving well with bed mobility, transfers and gait during IE. BP WNL w/orthostatics and pt reports about 4/10 pain. She will need to do stairs and be trained w/this prior to return home but has good home set up and good family support so plan for DC home when medically stable and when able to do stairs. Goals Bed Mobility Goal Independent Transfer Goal Independent Gait Goal Independent Gait Distance 150ft Other Goals up/down 3 stairs w/rail and up /down platform steps w/FWW SBA Days to Meet Goals 4 Frequency of Treatment Frequency Of Treatment Twice a Day Treatment Plan Physical Therapy Treatment Plan Bed Mobility Training,Transfer Training,Gait Training, Therapeutic Exercise,Balance Retraining,Post Op Education, Discharge Planning, Neuromuscular Re-ed Other Recommendations and Next Treatment do stairs, sit to supine Focus training, review exercises more as needed Weight Bearing Status Weight Bearing Status Weight Bear as Tolerated Recommendations To Nursing Amount of Assist Needed Standby Assistance Discharge Recommendations PT Discharge Recommendations Home with Assistance, Outpatient PT Transportation Needs at Discharge Private Vehicle
--- NOTE | 2022-09-03 14:55 | PT.IPTN ---
Current Diagnoses Unilateral primary osteoarthritis, left knee (09/03/22) Surgery Performed Operation Date: 09/03/22 07:45 Actual Procedures p Total Knee Arthroplasty(Left) - Nicolás Ware MD Physical Therapy Treatment Note M2 PT-IP Current Condition Start: 09/03/22 10:28 Freq: NEEDED Status: Active Protocol: Document 09/03/22 12:02 [facility] (Rec: 09/03/22 12:10 [facility] [id number]) Physical Therapy Current Condition Current Condition Evaluation Date 09/03/22 Treatment Diagnosis L TKA Onset Date 09/03/22 M3 PT-IP Subjective Start: 09/03/22 10:28 Freq: NEEDED Status: Active Protocol: Document 09/03/22 15:22 [facility] (Rec: 09/03/22 15:54 [facility] [id number]) Subjective Physical Therapy Visit Type Type Treatment Note Visit Start Time 14:55 Visit Stop Time 15:15 Total Visit Minutes 20 Number of ADVANCED MANUFACTURING VICE PRESIDENT Visits 1 Physical Therapy Visit Comments Patient Comments Pt reports not having much pain and would like to go home today. Patient Goals To go home today and to be able to go camping in her trailer in 6 weeks M4 PT-IP Mobility and Gait Start: 09/03/22 10:28 Freq: NEEDED Status: Active Protocol: Document 09/03/22 15:22 [facility] (Rec: 09/03/22 15:54 [facility] [id number]) PT-Transfer Assessment Sit to and From Stand Sit to and from Stand Standby Assistance,Use of Upper Extremities Equipment Transfer Assistive Device Gait Belt,Front Wheeled Walker Orthotic/Prosthetic Devices or Brace: No Comments Mobility Comments Pt found resting in chair, family in room, agreeable to PT session. Sit to stand x1 w/ FWW SBA, UE support on FWW. Pt ambulated in hallway ~200' to stairs SBA with NBOS step thru gait, good management of FWW. She performed stairs x6 SBA with BUE handrail support, provided cues for sequencing of steps on stairs. Pt ambulated back to room, was left in bedside chair with family in room, RN notified. Gait Assessment Gait Gait Assistance Required: Standby Assistance Distance (Feet) 200 Able to Maintain Weight Bearing Status Yes During Gait Assistive Devices Assistive Device Gait Belt Orthotic/Prosthetic Devices or Brace: No Gait Deviations General Gait Pattern Decreased Stride Length, Decreased Feet Clearance Factors Limiting Gait Function Factors Limiting Gait Function Decreased Strength,Limited Range of Motion,Pain Comments Gait Comments See mobility comments Stair Climbing Assessment Evaluation Level of Assist On Stairs Standby Assistance Devices Stair Climbing Assistive Devices Left Railing,Right Railing Technique/Endurance Stair Climbing Direction Ascend and Descend Stair Climbing Technique Step to Step Number of Steps Climbed 6 Comments Stair Climbing Comments See mobility comments. PT-Balance Assessment Sitting Balance and Reactions Static Sitting Balance Ability Normal Dynamic Sitting Balance Ability Good Standing Balance and Reactions Static Standing Balance Ability Good Dynamic Standing Balance Ability Fair Device Used FWW M5 PT-IP Objective Assessments Start: 09/03/22 10:28 Freq: NEEDED Status: Active Protocol: Document 09/03/22 12:02 [facility] (Rec: 09/03/22 12:10 [facility] [id number]) Orientation Orientation/Cognition Level of Alertness Alert Language Function Ability No Deficits Noted Safety Awareness Understands Safety Issues Memory Description No Deficits Noted Gross Range of Motion Lower Extremity ROM Assessment Left Impaired Impairments about 80deg flex in seated and 0 deg ext in supine Strength Lower Extremity Strength Assessment Left Impaired Knee grossly 3/5 on L M6 PT-IP Treatment Start: 09/03/22 10:28 Freq: NEEDED Status: Active Protocol: Document 09/03/22 15:22 [facility] (Rec: 09/03/22 15:54 [id number]) Physical Therapy Treatment Education Education Provided Precautions,Weight Bearing Status,Post-Op Packet,Safety M7 PT-IP Assessment and Plan Start: 09/03/22 10:28 Freq: NEEDED Status: Active Protocol: Document 09/03/22 15:22 [facility] (Rec: 09/03/22 15:54 [id number]) PT Summary Assessment and Plan Potential Rehabilitation Potential Good Status of Condition at Evaluation Evolving Summary Impairments Pain,ROM,Strength,Balance,Bed Mobility,Transfers,Gait, Activity Tolerance Assessment Summary Pt is progressing in her mobility well. She increased her ambulation distance to ~ 200' SBA with a step thru gait , no signs of fatigue, buckling or LOB. She performed stairs x6 SBA with BUE support from handrails. PT is recommending return home with assist from family. She has a lot of support at home from family and she would like to d /c today. Goals Bed Mobility Goal Independent Transfer Goal Independent Gait Goal Independent Gait Distance 150ft Other Goals up/down 3 stairs w/rail and up /down platform steps w/FWW SBA Days to Meet Goals 4 Frequency of Treatment Frequency Of Treatment Twice a Day Treatment Plan Physical Therapy Treatment Plan Bed Mobility Training,Transfer Training,Gait Training, Therapeutic Exercise,Balance Retraining,Post Op Education, Discharge Planning, Neuromuscular Re-ed Other Recommendations and Next Treatment do stairs, sit to supine Focus training, review exercises more as needed Weight Bearing Status Weight Bearing Status Weight Bear as Tolerated Recommendations To Nursing Amount of Assist Needed Standby Assistance Discharge Recommendations PT Discharge Recommendations Home with Assistance, Outpatient PT Transportation Needs at Discharge Private Vehicle
--- NOTE | 2022-09-03 15:25 | PC.NURSE ---
Addendum entered by Munira Medina R.N. 09/03/22 17:39: PA at bedside this evening after patient has completed cefazolin, and eaten 100% of dinner. She voided x4 times. She is cleared for discharge home with daughter this evening. She is escorted via w/ch to private vehicle with daughter with all of her belongings at approximately 1750 this evening. Original Note: Pt arrived from PACU at 1025 this a.m. She is A&Ox4, on RA. VSS, afebrile. She denies n/v, and reports pain is well controlled with 5mg prn oxycodone. Renny wrap is C/D/I. CMS+ to BLE's. She works with PT this a.m and this afternoon, ambulating in the becker and completing stairs. She is able to void this afternoon without difficulty x1 large. Daughter and son-in-law at bedside are supportive. Pt is eager to discharge home this afternoon.
[2022-09-03] MEDS: WARFARIN 5 MG TABLET 10 MG PO (16:11)
--- NOTE | 2022-09-03 17:32 | P.DS_ITS ---
History of Present Illness History of Present Illness Date Patient Seen: 09/03/22 Time Patient Seen: 17:32 Chief complaint: Left Total Knee Arthroplasty Narrative: Patient is complaining of mild left knee pain this afternoon. She is worked with physical therapy. Overall she is feeling well and would like to be discharged home. She is aware her anticoagulation plan including bridging with Lovenox in addition to her normal warfarin. She is a follow-up with her INR nurse in 3 days. Discharge Providers Provider Discharge Date: 09/03/22 Primary care physician: Flavia Dean MD Consults: 09/03/22 10:19 Consult to Discharge Planning Routine Comment: Consult to Physical Therapy Evaluate & Treat Comment: Physician Instructions: postop TKA protocol Discharge provider: [place] Zuluaga PA-C Summary Hospital Course Discharge Diagnosis: Left knee osteoarthritis Hospital Course: Operative Date/Time/Diagnoses Date of procedure: 09/03/22 Time of procedure: 09:42 Procedure & Clinicians Procedure: Left total knee replacement Same procedure as scheduled: Yes Indications: The patient has had progressively worsening left knee pain with radiographic changes consistent with arthritis. Non-operative management has failed and the patient has requested total knee replacement. The risks, benefits and alternatives to surgery were discussed with the patient prior to proceeding. Risks discussed included, but were not limited to, failure to relieve pain, stiffness, infection, nerve damage, deep venous thrombosis, pulmonary embolism, stroke, coma, heart attack, permanent paralysis and , as well as the potential need for eventual revision of the prosthetic. Surgeon: Nicolás Ware Printed Circuit Board Reworker: Florida Zuluaga Click Yes if Unassisted: No Anesthesia Type: General, Spinal and Local Operative Notes Findings: Severe medial and moderate patellofemoral osteoarthritis with relative preservation of the lateral compartment. Closure Type: primary Specimen(s): none sent Prosthetic devices, grafts, tissues, transplants, or devices: Implants used in this procedure were manufactured by the [employer] and [employer] and included the BCS II Journey total knee replacement with a size 4 left cobalt chromium femur, size 4 left non porous tibial base plate, a 9 mm cross-linked polyethylene tibial insert and a 32 mm oval Lauryn II patellar component. Applied: implant(s) Estimated Blood Loss (mL): 25 Blood products transfused: none Tourniquet time (min): 48 Status at Discharge Cognitive/behavioral status at discharge: at baseline, oriented Functional status at discharge: uses cane/walker Overall status at discharge: patient is progressing back to baseline Exam Vital Signs (past 8 hours): - 09/03/22 09:57 09/03/22 10:08 09/03/22 10:14 Temperature 97.4 F L 97.2 F L Pulse Rate 69 72 73 Respiratory Rate 20 17 18 Blood Pressure 116/45 L 109/49 L 110/45 L Pulse Oximetry 97 96 97 Oxygen Delivery Method Room Air Room Air Room Air 09/03/22 09:51 09/03/22 09:57 09/03/22 10:04 Temperature 97 F L Pulse Rate 66 69 68 Respiratory Rate 12 12 14 Blood Pressure 114/45 L 115/46 L 117/50 L Pulse Oximetry 97 99 98 Oxygen Delivery Method Room Air Room Air Room Air 09/03/22 10:30 09/03/22 11:04 09/03/22 15:14 Temperature 96.9 F L Pulse Rate 76 70 77 Respiratory Rate 16 16 16 Blood Pressure 134/80 151/60 H 124/66 Pulse Oximetry 99 98 98 Oxygen Delivery Method Oxygen Delivery Method Room Air Narrative Exam Narrative: Pleasant 77-year-old female, resting comfortably in her chair, no acute distress. Her family is at bedside. Her left knee Aquacel dressing is clean, dry, intact. No surrounding erythema, induration, or caridad pus. Bilateral lower extremity: Motor functions are grossly intact, sensation is grossly intact to light touch, calves are soft and nontender to palpation. Objective Labs Labs: Laboratory Results - last 24 hr 09/03/22 09/03/22 07:05 11:22 PT 12.8 H INR 1.1 SARS-CoV-2 (PCR) Negative COUNTS INCLUDE 234 BEDS AT THE [facility] Medical History Ankle fracture, left (~2008) Easy bruisability Factor V Leiden Phlebitis Psoriasis Rectal bleeding (~2015) Surgical History History of carpal tunnel surgery of right wrist History of hysterectomy (11/2021) History of total left hip arthroplasty History of total replacement of right hip (03/28/19) Hx of bilateral cataract extraction Hx of cholecystectomy Hx of hernia repair Hx of laminectomy (08/28/15) Hx of oral surgery Hx of tubal ligation Status post epidural steroid injection Social History household members: family Smoking Status: Former smoker alcohol intake: current Discharge Assessment & Plan Assessment and Plan Assessment: -stable status post left total knee arthroplasty -history of factor 5 Leiden deficiency and DVT -chronic anticoagulation Plan of Treatment: -mobilize with PT. Weightbearing as tolerated with front wheel walker -continue with multimodal pain management. No NSAIDs due to warfarin use -continue with daily dose of warfarin in additional Lovenox bridge. The patient has her medications at home and will bridge with Lovenox until her INR is greater than 2.0. Appointment with her INR nurse in 3 days. -DC home once cleared by PT Discharge Plan Discharge Plan Patient Disposition: Home Discharge orders & Medications Discharge Orders: Discharge (Order); Ordered 09/03/22 Ordered By: Florida Zuluaga Prescriptions: New docusate sodium 100 mg Capsule 100 mg PO BID PRN (Reason: constipation) Qty: 30 0RF oxycodone 5 mg Tablet See Rx Instructions .ROUTE .COMPLEX PRN (Reason: Pain, Moderate (4-6)) Qty: 42 0RF Rx Instructions: Take 1-2 tablets by mouth every 4 hours as needed for moderate to severe postoperative pain Continued warfarin 10 mg Tablet 10 mg PO DIRECTED Patient Comments: 5mg q Wed, Sat/10mg rest tramadol 50 mg Tablet 50 mg PO BID Cosentyx Pen 150 mg/mL Pen Injector 300 mg SUBCUT Q4W acetaminophen 325 MG tablet 325 mg PO Q4HP PRN (Reason: Pain) cholecalciferol (vitamin D3) [Vitamin D3] 1,000 unit Capsule 1,000 unit PO DAILY Rx Instructions: unknown dose omega 2-rmk-pca-fish oil [Fish Oil] 1,000 mg (120 mg-180 mg) Capsule 1 cap PO DAILY enoxaparin [Lovenox] 100 mg/mL Syringe 100 mg SUBCUT Q12H Follow up/Referrals: Flavia Dean MD [Primary Care Provider] - Nicolás Ware MD [Physician] - As previously scheduled (Follow up with Flaquito Storey PA-C, on 09/17/2022 @ 2:00 pm at [facility] office in [place].) Diet/Activity/Treatments Diet: Diet as Tolerated Activity: Walk frequently! Cold/Heat Therapy: Ice to knee as needed for pain. Other treatments: Medications: -OTC Tylenol 500 mg 1 tablet every 4 hours as needed for pain/fever. Max 6 tablets per day. -Oxycodone 5 mg take 1-2 tablets every 4 hours as needed for moderate-severe anita n (narcotic pain medication). -As needed medications: -Ducolax and /or MiraLax as needed for constipation from narcotic pain medications. -Pepcid AC as needed for stomach upset (usually from aspirin or ibuprofen). Anticoagulation: -continue with normal warfarin dose -continue to bridge with Lovenox. Okay to stop Lovenox once INR is greater than 2.0. Dressing/Wound care: -Remove the Renny wrap 48 hours after surgery. -Keep Aquacell dressing in place until postoperative follow-up office visit. -Okay to shower. Keep wound out of direct water stream. No soaking or submerging until all the scabs fall off (approximately 4-6 weeks). -No lotions, ointments, or scar creams directly to the incision until the wound is healed (4-6 weeks). No soaking or submerging until all the scabs are gone (usually 4-6 weeks). -Bruising is relatively normal and can show up 1-10 days after surgery, and can travel down to your foot or ankle. This is expected after surgery, but can be painful. -Please call the office if dressing becomes wet, soiled, or saturated. Activities: -Walk frequently: approximately 5-10 minutes every hour. -Weight-bearing as tolerated. Use front wheeled walker, and progress to cane when safe. -Continue with home exercises as directed by your physical therapist. -Elevate ?toes above the nose if you have significant swelling in your lower leg. (A wedge pillow is easiest.) -Ice your incision as needed for pain/inflammation/swelling. Protect your skin with a folded pillowcase. -Incentive Spirometer (breathing device from hospital): 5-10xs every hour while awake for the first 1-2 weeks. Follow-up: -Follow-up with your surgeon or PA in the office in 10-14 days after surgery. -Follow-up with your surgeon 6 weeks postoperatively. Call the office if you have chest pain, shortness of breath, significant swelling that will not resolve with elevating, fever over 101?, significantly worsening pain, or are concerned you might need to go to the Emergency Room. [facility]: [phone] Skin/Wound/Dressing Care Report to your healthcare provider any signs of infection, such as:: chills, fever, night sweats, unusual drainage and unusual redness Dressing: May remove RENNY wrap and shower on 09/06/2022. Leave Aquacel dressing in place until follow up in office. No bathing or otherwise soaking incision. Call the office if the dressing becomes saturated inside. Visit Report/Discharge Packet Instructions: DI for Knee Replacement Stand Alone Forms: Patient Portal/API, Surgery Discharge Discharge Data Primary Care Provider: Flavia Dean Attending Provider: Nicolás Ware Quality VTE Deep Vein Thrombosis/Pulmonary Embolism Present on Admission: No
== END 2022-09-03 17:50 | disposition home or self-care (01) ==
LOC: OR 06:21 → AC 06:22
PROVIDERS: Family Provider Family Medicine; PCP Family Medicine; Referring Provider Orthopaedic Surgery; Visit Provider Orthopaedic Surgery
PROC: 0SRD0JZ Replacement of Left Knee Joint with Synthetic Substitute, Open Approach (ICD-10-PCS; CPT 27447; principal; 2022-09-03 07:45)
DX: M17.12 Unilateral primary osteoarthritis, left knee (principal); Z86.718 Personal history of other venous thrombosis and embolism; D68.51 Activated protein C resistance; E66.01 Morbid (severe) obesity due to excess calories; Z68.41 Body mass index [BMI] 40.0-44.9, adult; Z20.822 Contact with and (suspected) exposure to COVID-19
CPT/HCPCS: 27447; 36415; 73560; 85610; 87635; 97162; 97530; 97535; C1776; C9803; C9290; J0171; J0690; J1100; J1650; J2250; J2270; J2274; J2405; J2704; J3010